=== PATIENT | female | born 1970 | race Caucasian/White ===

== ENCOUNTER 2021-01-23 16:20 | Outpatient (CLI) | payer OTHER, SELFPAY | END 2021-01-23 16:21 | disposition home or self-care (01) | LOC: ANHCOVIDVC 16:21 | DX: Z23 Encounter for immunization (principal) | CPT/HCPCS: 0001A; 91300 ==

== ENCOUNTER 2021-02-13 16:16 | Outpatient (CLI) | payer OTHER, SELFPAY | END 2021-02-13 16:17 | disposition home or self-care (01) | LOC: ANHCOVIDVC 16:16 | DX: Z23 Encounter for immunization (principal) | CPT/HCPCS: 0002A; 91300 ==